=== PATIENT | female | born 1970 | race African-American/Black ===

== ENCOUNTER 2020-01-20 04:06 | Emergency (ER) | payer SELFPAY ==
[~2020-01-20] VITALS: Ht 167.6 cm; Wt 96.0 kg
[2020-01-20] MEDS ORDERED: KETOROLAC 30MG/ML VIAL IV STA (04:29)
[2020-01-20 04:58] LABS: CHLORIDE 106 mEq/L (98-107)
[2020-01-20 04:59] LABS: BASOPHILS % 0.9 % (0.0-2.0); EOSINOPHILS % 3.7 % (0.0-5.0); HEMATOCRIT. 37.4 % (36.0-48.0); HEMOGLOBIN. 11.9 g/dL (12.0-16.0); LYMPHOCYTES % 32.4 % (20.0-50.0); MEAN CORPUSCULAR HEMOGLOBIN 27.2 pg (28.0-32.0); MEAN CORPUSCULAR VOLUME 85.7 fL (81.0-99.0); MEAN PLATELET VOLUME 10.9 fl (7.4-10.4); PLATELET 187 x1000/uL (130-400); RED BLOOD CELL COUNT 4.36 mill/uL (4.2-5.4); RED CELL DISTRIBUTION WIDTH 19.1 % (11.6-14.6)
[2020-01-20 05:08] LABS: ETHANOL BLOOD < 10 mg/dL
[2020-01-20 05:39] LABS: CLARITY URINE CLOUDY (CLEAR); COLOR URINE YELLOW (YELLOW); KETONES URINE NEGATIVE (NEGATIVE); LEUKOCYTE ESTERASE URINE NEGATIVE (NEGATIVE); NITRITE URINE NEGATIVE (NEGATIVE); OCCULT BLOOD URINE 1+ (NEGATIVE); PH URINE 5.5 (4.5-8.0); PROTEIN URINE NEGATIVE (NEGATIVE); SPECIFIC GRAVITY URINE 1.021 (1.005-1.030); UROBILINOGEN URINE 0.2 E.U./dL (0.2-1.0)
[2020-01-20 05:52] LABS: *AMPHETAMINES SCREEN URINE NEGATIVE (NEGATIVE); *BARBITURATES SCREEN URINE NEGATIVE (NEGATIVE); *BENZODIAZEPINES SCREEN URINE NEGATIVE (NEGATIVE); *COCAINE SCREEN URINE NEGATIVE (NEGATIVE); METHADONE URINE SCREEN NEGATIVE (NEGATIVE)
[2020-01-20 05:53] LABS: CANNABINOID URINE SCREEN PRESUMTIVE POSITIVE (NEGATIVE); OPIATES URINE SCREEN NEGATIVE (NEGATIVE); PHENCYCLIDINE URINE SCREEN NEGATIVE (NEGATIVE)
[2020-01-20 10:25] VITALS: BP 130/84
== END 2020-01-20 10:28 | disposition home or self-care (01) ==
LOC: ER 04:06
DX: R10.9 Unspecified abdominal pain (principal); R10.2 Pelvic and perineal pain; I10 Essential (primary) hypertension; Z88.0 Allergy status to penicillin
CPT/HCPCS: 36415; 74176; 76830; 76856; 80053; 80305; 80320; 81003; 81025; 83690; 85025; 93005; 96374; 99285; J1885; Z7610; G0480

== ENCOUNTER 2020-08-26 12:44 | Emergency (ER) | payer MEDICAID ==
[~2020-08-26] VITALS: Ht 170.2 cm; Wt 90.0 kg
[2020-08-26 14:08] LABS: CLARITY URINE CLOUDY (CLEAR); COLOR URINE YELLOW (YELLOW); KETONES URINE NEGATIVE (NEGATIVE); LEUKOCYTE ESTERASE URINE 3+ (NEGATIVE); NITRITE URINE NEGATIVE (NEGATIVE); OCCULT BLOOD URINE 1+ (NEGATIVE); PROTEIN URINE NEGATIVE (NEGATIVE); SPECIFIC GRAVITY URINE 1.018 (1.005-1.030); UROBILINOGEN URINE 0.2 E.U./dL (0.2-1.0)
[2020-08-26] MEDS ORDERED: NITR-87 MT (15:00)
[2020-08-26] MEDS ORDERED: METRONIDAZOLE 500MG TABLET PO ONE (15:00)
[2020-08-26 15:21] VITALS: BP 188/107
== END 2020-08-26 15:21 | disposition home or self-care (01) ==
LOC: ER 12:44
DX: N39.0 Urinary tract infection, site not specified (principal); A59.9 Trichomoniasis, unspecified; I10 Essential (primary) hypertension; Z88.0 Allergy status to penicillin
CPT/HCPCS: 81003; 81025; 87210; 99283

== ENCOUNTER 2021-02-01 10:34 | Emergency (ER) | payer MEDICAID ==
[~2021-02-01] VITALS: Ht 167.6 cm; Wt 91.0 kg
[~2021-02-01 10:34] MED LIST: NITR-87 MT
[2021-02-01 10:41] VITALS: BP 197/108
== END 2021-02-01 11:55 | disposition left against medical advice (07) ==
LOC: ER 10:34
DX: M79.671 Pain in right foot (principal); I10 Essential (primary) hypertension; Z91.14 Patient's other noncompliance with medication regimen; Z88.0 Allergy status to penicillin
CPT/HCPCS: 73630; 99283

== ENCOUNTER 2022-06-09 10:39 | Emergency (ER) | payer MEDICAID, OTHER ==
[~2022-06-09] VITALS: Ht 167.6 cm; Wt 93.0 kg
[2022-06-09 10:48] VITALS: BP 195/114
== END 2022-06-09 14:32 | disposition left against medical advice (07) ==
LOC: ER 10:58
DX: Z53.21 Procedure and treatment not carried out due to patient leaving prior to being seen by health care provider (principal)
CPT/HCPCS: 99281

== ENCOUNTER 2022-09-19 10:15 | Emergency (ER) | payer OTHER ==
[~2022-09-19] VITALS: Ht 167.6 cm; Wt 93.0 kg
[2022-09-19 10:51] VITALS: O2SAT 98
[2022-09-19] MEDS ORDERED: TETRACAINE 0.5% OPHTH DROPS 4ML RIGHTEYE ONE (13:00)
[2022-09-19] MEDS ORDERED: FLUORESCEIN SODIUM 1MG/STRIP RIGHTEYE ONE (13:00)
[2022-09-19 13:48] VITALS: BP 128/76; PULSE 81; RESP 16; TEMP 98.4
== END 2022-09-19 13:52 | disposition home or self-care (01) ==
LOC: ER 11:00
DX: T15.91XA Foreign body on external eye, part unspecified, right eye, initial encounter (principal); I10 Essential (primary) hypertension; Z88.0 Allergy status to penicillin; X58.XXXA Exposure to other specified factors, initial encounter; Y93.89 Activity, other specified; Y92.89 Other specified places as the place of occurrence of the external cause; Y99.8 Other external cause status
CPT/HCPCS: 65220; 99284

== ENCOUNTER 2023-07-22 08:53 | Emergency (ER) | payer SELFPAY ==
[~2023-07-22] VITALS: Ht 167.6 cm; Wt 93.0 kg
[2023-07-22 08:58] VITALS: BP 188/119; RESP 16; TEMP 98.4; O2SAT 100
[2023-07-22 09:10] VITALS: PULSE 78
[2023-07-22] MEDS ORDERED: FAMO-135 MT (09:21)
[2023-07-22] MEDS ORDERED: DIPH25CA83 MT (09:21)
== END 2023-07-22 09:29 | disposition home or self-care (01) ==
LOC: ER 08:58
DX: S60.562A Insect bite (nonvenomous) of left hand, initial encounter (principal); I10 Essential (primary) hypertension; F19.90 Other psychoactive substance use, unspecified, uncomplicated; Z88.0 Allergy status to penicillin; W57.XXXA Bitten or stung by nonvenomous insect and other nonvenomous arthropods, initial encounter; Y93.89 Activity, other specified; Y92.89 Other specified places as the place of occurrence of the external cause; Y99.8 Other external cause status
CPT/HCPCS: 99282